=== PATIENT | female | born 1940 | race Caucasian/White ===

== ENCOUNTER 2020-11-15 12:33 | Outpatient (CLI) | payer MEDICARE, SELFPAY ==
--- NOTE | 2020-11-15 | ECHO_ITS ---
Patient Info Name: Natacha Arechiga Age: 80 years : 1940 Gender: Female Ht: 60 in Wt: 104 lbs BSA: 1.41 m2 HR: 69 bpm BP: 162 / 68 mmHg Heart Rhythm: Sinus Rhythm Exam Date: 11/15/2020 12:34 PM Exam Location: [facility] Patient Status: Outpatient Admit Date: 11/15/2020 Staff Ordering Physician: PrabhuKyle MD Cranberry Grower: Marley Patel RDCS Attending Provider: RaheelKyle MD Exam Type: CA echo doppler color flow Study Info Indications R01.1 - Cardiac murmur, unspecified Complete two-dimensional, color flow and Doppler transthoracic echocardiogram is performed. Summary 1. Complete two-dimensional, color flow and Doppler transthoracic echocardiogram is performed. 2. Left ventricular systolic function is normal, estimated at >70%. 3. The left ventricular diastolic function is grade I diastolic dysfunction. 4. There is no mitral valve regurgitation. 5. There is mild aortic valve stenosis with a peak velocity of 141 cm/s, mean gradient of 4 mmHg, and aortic valve area of 1.9 cm2. 6. No pulmonary hypertension, estimated pulmonary arterial systolic pressure is 25 mmHg. 7. There is trace tricuspid valve regurgitation. 8. There is a small pericardial effusion. Left Ventricle Left ventricular chamber dimension is normal. Left ventricular systolic function is normal, estimated at >70%. There is no increased left ventricular wall thickness. The left ventricular diastolic function is grade I diastolic dysfunction. Right Ventricle Right ventricular chamber dimension is normal. Right ventricular systolic function is normal. Left Atria Left atrial chamber dimension is normal. Right Atria Right atrial chamber dimension is normal. Aortic Valve The aortic valve is trileaflet. There is mild aortic valve stenosis with a peak velocity of 141 cm/s, mean gradient of 4 mmHg, and aortic valve area of 1.9 cm2. There is trace aortic valve regurgitation. There is mild aortic valve calcification. Pulmonic Valve The pulmonic valve is normal. There is trace pulmonic regurgitation. Mitral Valve The mitral valve has normal leaflets. There is no mitral valve regurgitation. The mitral valve annulus is moderately calcified. Tricuspid Valve The tricuspid valve leaflets are normal. There is trace tricuspid valve regurgitation. No pulmonary hypertension, estimated pulmonary arterial systolic pressure is 25 mmHg. Pericardium/Pleural The pericardium appears normal. There is a small pericardial effusion. Inferior Vena Cava Normal inferior vena cava with >50% collapse upon inspiration consistent with normal right atrial pressure, 5 mmHg. Aorta The aortic root size at the sinus of Valsalva is normal. There is mild aortic atherosclerosis. Left Ventricular Outflow Tract Name Value Normal LVOT 2D LVOT Diameter 1.7 cm LVOT Doppler LVOT Peak Gradient 5 mmHg LVOT Mean Gradient 2 mmHg LVOT VTI 26 cm LVOT VTI/AV VTI Ratio 0.9 LVOT Stroke Volume 5
--- NOTE | ~2020-11-15 | US_ITS ---
EXAMINATION: US carotid duplex BI DATE: 11/15/2020 13:17 INDICATION: Right carotid stenosis. TECHNIQUE: Grayscale, color Doppler, and pulsed Doppler images of the cervical carotid arteries were obtained. The degree of vessel stenosis is placed in one of the following categories: normal, <50%, 5 0-69%, >=70% but less than near-occlusion, near-occlusion, or total occlusion. Note that percent sten osis relative to normal distal artery lumen diameter is indirectly measured from velocity measurement s as described by Dylan, et al. Radiology 2003; 229:[id number]. COMPARISON: None. FINDINGS: RIGHT: The right common carotid artery (CCA) peak systolic velocity (PSV) is 103 cm/s. The right internal ca rotid artery (ICA) PSV is 340 cm/s. The right ICA end-diastolic velocity (EDV) is 59 cm/s. The right ICA/CCA PSV ratio is 3.3. Grayscale and color Doppler images yield an estimate of >=50% diameter redu ction from plaque in the ICA. There is antegrade flow in the right vertebral artery. LEFT: The left CCA PSV is 139 cm/s. The left ICA PSV is 171 cm/s. The left ICA EDV is 31 cm/s. The left ICA /CCA PSV ratio is 1.2. Grayscale and color Doppler images yield an estimate of >=50% diameter reducti on from plaque in the ICA. There is antegrade flow in the left vertebral artery. IMPRESSION: 1. >70% stenosis in the right internal carotid artery, but less than near occlusion. 2. 50-69% stenosis in the left internal carotid artery. Reviewed, dictated and finalized at location A. IMPRESSION: 1. >70% stenosis in the right internal carotid artery, but less than near occlu deb. 2. 50-69% stenosis in the left internal carotid artery.
== END 2020-11-15 12:34 | disposition home or self-care (01) ==
PROVIDERS: PCP Internal Medicine; Visit Provider Internal Medicine
DX: I65.23 Occlusion and stenosis of bilateral carotid arteries (principal); R01.1 Cardiac murmur, unspecified
CPT/HCPCS: 93306; 93880

== ENCOUNTER 2023-11-08 14:15 | Emergency (ER) | payer MEDICARE, SELFPAY ==
--- NOTE | ~2023-11-08 | XR_ITS ---
EXAMINATION: XR chest 1V portable DATE: 11/08/2023 15:23 INDICATION: Cough. TECHNIQUE: A single frontal view of the chest was obtained. COMPARISON: None. FINDINGS: There is no pneumonia, pleural effusion, or pneumothorax. The heart size is normal. IMPRESSION: 1. No acute cardiopulmonary disease. Reviewed, dictated and finalized at location E. [employer]
[2023-11-08 14:17] VITALS: BP 184/50; PULSE 65; RESP 18; TEMP 36.4; O2SAT 100
--- NOTE | 2023-11-08 14:45 | ED.GENADULT ---
HPI - General Adult General Chief complaint: Shortness of Breath/Dyspnea <Kade Robledo PA-C - Last Filed: 11/08/23 18:37> Stated complaint: FLU A positive, dehydrated, SOB <Kade Robledo PA-C - Last Filed: 11/08/23 18:37> Time Seen by Provider: 11/08/23 14:45 <Kade Robledo PA-C - Last Filed: 11/08/23 18:37> Focused HPI: This is a 83 year old female who presents to the ED for chief complaint of possible dehydration. Reports that she was diagnosed with flu a on Saturday by PCP. Since then she has been taking Tamiflu as prescribed. She feels that she is improving slowly but surely on the Tamiflu. She has talked to multiple family members who are concerned that she has dehydration. Patient states that she has not been eating or drinking a lot and that she does not like to drink water. Endorses cough but is not bringing anything up. Denies fevers, chills, abdominal pain, nausea, vomiting, chest pain, shortness of breath. GENERAL: Well-appearing, well-nourished, and in no acute distress. HEAD: Normocephalic, atraumatic. CHEST: Clear to auscultation. No respiratory distress. HEART: Regular rate and rhythm. NEURO: Alert and oriented x3. Patient screened in triage and initial orders placed. Additional care and disposition to be based upon diagnostic testing and treatment. <Kade Robledo PA-C - Last Filed: 11/08/23 18:37> Source: patient and family (son) <Christina Blancas MD - Last Filed: 11/09/23 07:48> Mode of arrival: ambulatory <Christina Blancas MD - Last Filed: 11/09/23 07:48> Limitations: no limitations <Christina Blancas MD - Last Filed: 11/09/23 07:48> History of Present Illness HPI narrative: 83 yo female who tested positive for Influenza A on Saturday at [facility]. She had been symptomatic for several days prior (starting Saturday night). She thinks she might be dehydrated and feels somewhat short of breath but the cough is better and the last time she was febrile was Saturday. Her primary complaint is generalized weakness and she thinks this is due to decreased PO intake. She had a few episodes of diarrhea before she began taking Tamiflu but then it seemed to get worse after taking Tamiflu (started taking it Saturday night after she contacted her doctor). also started taking unknown pills for a cough Saturday. She knows it sounds strange but her skin is sore (e.g. the top of her head); no rash. She denies any myalgias. No history of underlying respiratory conditions or cardiac history. Denies myalgias. 1 PPD smoker. <Christina Blancas MD - Last Filed: 11/09/23 07:48> Related Data Allergies/adverse reactions: Allergies Allergy/AdvReac Type Severity Reaction Status Date / Time No Known Allergies Allergy Mild Unverified 09/20/03 10:58 <Kade Robledo PA-C - Last Filed: 11/08/23 18:37> [facility] Social History Social History: Social History (Updated 11/09/23 @ 00:09 by Christina Blancas MD) Smoking packs per day: 1 Smoking cigarettes per day: 20.0 Living arrangements: with family Additional living arrangements comments: her great grand-daughter lives with her <Kade Robledo PA-C - Last Filed: 11/08/23 18:37> Exam Const: General: alert; No confusion or diaphoretic <Christina Blancas MD - Last Filed: 11/09/23 07:48> Nutritional Appearance: well nourished and thin <Christina Blancas MD - Last Filed: 11/09/23 07:48> Orientation/consciousness: patient oriented x3 <Christina Blancas MD - Last Filed: 11/09/23 07:48> Limitations: no limitations <Christina Blancas MD - Last Filed: 11/09/23 07:48> Other: appears acutely unwell <Christina Blancas MD - Last Filed: 11/09/23 07:48> HENMT: Head: normal to inspection <Christina Blancas MD - Last Filed: 11/09/23 07:48> Ears: external ears normal <Christina Blancas MD - Last Filed: 11/09/23 07:48> Face/Nose/Sinus: Normal external nose present <Christina Calabrese
[2023-11-08 14:56] LABS: Hematocrit 37.8 % (37.0-47.0); Hemoglobin 12.3 g/dL (12.0-15.0); Immature Platelet Fraction Pct 2.8 % (0.9-11.2); Mean Corpuscular HGB Conc 32.5 g/dl (32-36); Mean Corpuscular Hemoglobin 29.9 pg (26-34); Mean Corpuscular Volume 91.7 fl (80-100); Platelet Count Result 141 k/mm3 (150-375); Red Blood Count 4.12 M/mm3 (4.2-5.4); Red Cell Distribution Width 13.7 % (11.5-14.5); White Blood Count 16.5 K/mm3 (4.5-10.0)
[2023-11-08 15:01] LABS: Appearance Urine Clear (Clear); Bacteria Urine None Seen /hpf; Bilirubin Urine Negative (Negative); Blood Urine Negative (Negative); Color Urine Yellow (Yellow); Glucose Urine UA Negative (Negative); Ketones Urine Negative (Negative); Leukocyte Esterase Ur Trace LEU/UL (Negative); Nitrate Urine Negative (Negative); Non Pathogenic Casts 0-2; Protein Urine 1+ mg/dL (Negative); RBC Urine 0-2 /hpf (0-2); Specific Grav Ur 1.018 (1.001-1.035); Squamous Epithelial Cell Urine None seen /hpf (Few); WBC Urine 0-5 /hpf
[2023-11-08 15:09] LABS: Alanine Aminotransferase 17 U/L (6-35); Albumin Level 3.6 g/dL (3.5-5.1); Alkaline Phosphatase 75 U/L (38-126); Anion Gap 4 mmol/L (8-16); Aspartate Amino Transferase 29 U/L (14-36); Bilirubin,Total 0.6 mg/dL (0.2-1.3); Blood Urea Nitrogen 16 mg/dL (7-17); Calcium 9.1 mg/dL (8.4-10.2); Carbon Dioxide 25 mmol/L (22-30); Chloride 107 mmol/L (98-107); Estimated Glomerular Filt Rate > 60; Glucose 123 mg/dL (65-110); Potassium 4.1 mmol/L (3.4-5.0); Sodium 136 mmol/L (137-145)
[2023-11-08 15:29] LABS: Add Urine Microscopic? YES
[2023-11-08 15:50] LABS: Lymphocytes Absolute Manual 14.02 K/mm3 (1.1-4.5); Monocytes Absolute Manual 0.33 K/mm3 (0.1-0.90); Monocytes Percent Manual 2 % (3-9); Neutrophils Percent Manual 13 % (46-73); Platelet Estimate Decreased (Adequate); Total Cells Counted 100
[2023-11-08 15:51] LABS: Schistocytes None Seen (NORMAL)
[2023-11-08] MEDS: SODIUM CHLORIDE 0.9% IV 1,000 ML 999 ML IV CONT (17:00)
[2023-11-08 17:07] LABS: Magnesium 1.8 mg/dL (1.6-2.3)
[2023-11-08 17:23] VITALS: BP 189/46; PULSE 72; RESP 18; TEMP 36.5; O2SAT 99
[2023-11-08 18:10] VITALS: BP 209/67; PULSE 75; RESP 20; O2SAT 100
== END 2023-11-08 18:15 | disposition home or self-care (01) ==
PROVIDERS: Physician Assistant; Emergency Provider Student in an Organized Health Care Education/Training Program; PCP Internal Medicine
DX: R53.1 Weakness (principal); J10.1 Influenza due to other identified influenza virus with other respiratory manifestations; F17.210 Nicotine dependence, cigarettes, uncomplicated
CPT/HCPCS: 36415; 71045; 80053; 81001; 83735; 85025; 85055; 96360; 99283; J7030